=== PATIENT | male | born 1965 | race Caucasian/White ===

== ENCOUNTER 2016-10-17 13:15 | Outpatient (CLI) ==
[2013-12-05 20:45] VITALS: BMI 25.1
--- NOTE | 2016-10-17 13:34 | DI ---
EXAM: Two radiographic images of the chest. Comparison: 12/05/2013. Reason for study: Chronic obstructive pulmonary disease. FINDINGS: No pneumothorax, pleural effusion, or focal consolidation. There is mild flattening of t he hemidiaphragms. The cardiac silhouette is not enlarged. IMPRESSION: No acute cardiopulmonary findings.
== END 2016-10-17 13:16 | disposition home or self-care (01) ==
LOC: RAD 13:15
PROVIDERS: ATTEND Physician Assistant Medical
DX: J44.9 Chronic obstructive pulmonary disease, unspecified (principal)